=== PATIENT | female | born 1995 | race Caucasian/White ===

== ENCOUNTER 2018-08-01 12:50 | Emergency (ER) | payer SELFPAY ==
[~2018-08-01] VITALS: Ht 162.6 cm; Wt 88.4 kg
[2018-08-01] MEDS ORDERED: CYCLOBENZAPRINE10 M1 PO (14:11)
[2018-08-01 14:26] VITALS: BP 115/65
== END 2018-08-01 14:28 | disposition home or self-care (01) ==
LOC: ED 12:50
DX: M54.89 Other dorsalgia (principal); F17.210 Nicotine dependence, cigarettes, uncomplicated

== ENCOUNTER 2018-11-07 19:46 | Emergency (ER) | payer MEDICAID ==
[~2018-11-07] VITALS: Ht 160 cm; Wt 83.6 kg
[~2018-11-07 19:46] MED LIST: CYCLOBENZAPRINE10 M1 PO
[2018-11-07 19:50] VITALS: BP 130/56
[2018-11-07 20:26] LABS: BASO # 0.1 (0.02-0.10); EOS % 5.8 % (1.0-5.0); HEMATOCRIT 37.6 % (37.0-47.0); HEMOGLOBIN 12.4 g/dL (12.5-16.0); LYMPH# 4.2 (1.50-4.00); MEAN CELL VOLUME 88 fl (78-100); MEAN CORPUSCULAR HEMOGLOBIN 29 pg (27-31); MEAN CORPUSCULAR HGB CONC 33 g/dL (33-37); MEAN PLATELET VOLUME 11.9 fl (7.4-10.4); MONO # 0.8 (0.20-0.80); NEU # 8.7 (1.40-6.50); PLATELET COUNT 217 K/mm3 (130-400); RED BLOOD COUNT 4.26 M/mm3 (4.10-5.30); RED CELL DISTRIBUTION WIDTH 13.7 % (11.5-14.5); WHITE BLOOD COUNT 14.6 K/mm3 (4.8-10.8)
[2018-11-07 20:27] LABS: EOS # 0.8 (0.04-0.40)
[2018-11-07 20:39] LABS: CALCIUM 9.5 mg/dL (8.4-10.2); POTASSIUM 3.5 mmol/L (3.5-5.1)
== END 2018-11-07 22:02 | disposition home or self-care (01) ==
LOC: ED 19:46
PROVIDERS: Family Medicine
DX: N99.820 Postprocedural hemorrhage of a genitourinary system organ or structure following a genitourinary system procedure (principal)

== ENCOUNTER 2021-12-19 13:10 | Emergency (ER) | payer MEDICAID ==
[~2021-12-19] VITALS: Ht 162.6 cm; Wt 93.2 kg
[2021-12-19 15:11] VITALS: BP 116/72
== END 2021-12-19 15:11 | disposition home or self-care (01) ==
LOC: ED 13:10
DX: H53.8 Other visual disturbances (principal); Z28.310 Unvaccinated for COVID-19
CPT/HCPCS: Q9967